=== PATIENT | male | born 1950 | race Caucasian/White ===

== ENCOUNTER → 2021-10-09 | Outpatient (CLI) | payer MEDICARE, OTHER ==
[~2021-10-09] VITALS: Ht 180 cm; Wt 106.0 kg
[~2021-10-09] MED LIST: LIDOCAINE 1% INJ 20 ML VIAL INJ ONE; LIDOCAINE 1% INJ 20 ML VIAL ONE
--- NOTE | 2021-10-09 12:35 | Diagnostic Imaging Report ---
PROCEDURE: US Thyroid. TECHNIQUE: Multiple real-time grayscale images were obtained of the thyroid in various projections. INDICATION: Thyroid nodule. Both lobes of thyroid are enlarged. Right lobe measures 8.3 x 3.3 x 3.1 cm and left lobe measures 6.9 x 4.1 x 3.1 cm. Both lobes demonstrate heterogeneous echotexture. There is a hypoechoic, circumscribed nodule in upper pole of the right lobe of the thyroid measuring 2.2 x 1.7 x 1.8 cm. No other discrete thyroid nodules are identified. Left lobe is unremarkable. IMPRESSION: Thyromegaly. There is an upper pole right lobe thyroid nodule. Patient is scheduled to undergo fine-needle aspiration today. Dictated by: Dictated on workstation # [id number]
--- NOTE | 2021-10-09 12:45 | Diagnostic Imaging Report ---
INDICATION: Right thyroid nodule. DETAILS OF THE PROCEDURE: The patient was brought to the procedure room and placed on the table in the supine position. Ultrasound imaging over the right neck was performed to evaluate for an appropriate entry site. The right neck was then prepped and draped in the usual sterile fashion. A small amount of 1% lidocaine was utilized for local anesthesia. A total of four passes was made into the hypoechoic nodule in the upper pole of the right lobe of the thyroid utilizing 25-gauge needles and fine needle aspiration technique. A single pass was made with a Rotex needle and a Rotex biopsy was performed. The needles were removed and hemostasis was obtained. The patient tolerated the procedure well and left the Department in stable condition. IMPRESSION: Successful ultrasound guided fine needle aspiration and Rotex biopsy of the right lobe thyroid nodule in the upper pole. Pathology results are currently pending. Dictated by: Dictated on workstation # [id number]
== END ==
LOC: RAD 11:00
PROVIDERS: ATTEND Otolaryngology Otolaryngology/Facial Plastic Surgery
DX: E04.1 Nontoxic single thyroid nodule (principal)
CPT/HCPCS: 10005; 76536

== ENCOUNTER → 2022-04-12 | Outpatient (CLI) | payer MEDICARE, OTHER ==
--- NOTE | 2022-04-12 17:04 | Diagnostic Imaging Report ---
PROCEDURE: US Thyroid. TECHNIQUE: Multiple real-time grayscale images were obtained of the thyroid in various projections. INDICATION: Thyroid nodule. COMPARISON: Thyroid ultrasound of 10/09/2021. FINDINGS: Right thyroid lobe: The right thyroid lobe measures 7.8 x 3.5 x 3.2 cm. It is again noted to be enlarged and has heterogeneous echogenicity. The solid, isoechoic nodule in the upper pole of the thyroid lobe maintains stable appearance with circumscribed margins and no echogenic foci. It is stable in size measuring 2.2 x 1.8 x 1.7 cm (previously 2.2 x 1.7 x 1.8 cm). Isthmus: The thyroid isthmus measures 0.7 cm and is enlarged without nodule. Left thyroid lobe: The left thyroid lobe measures 6.7 x 3.5 x 3.2 cm. It is diffusely enlarged and heterogeneous without nodule. IMPRESSION: 1. No change in size or imaging appearance of the solid nodule in the upper pole of the right thyroid. This has been previously sampled and had a reported negative finding or aspiration. Based on the 2015 [place] [employer] Management Guidelines, consider follow-up thyroid ultrasound in 12-24 months to assess stability. Dictated by: Dictated on workstation # [id number]
== END ==
LOC: RAD 13:00
PROVIDERS: ATTEND Otolaryngology Otolaryngology/Facial Plastic Surgery
DX: E04.1 Nontoxic single thyroid nodule (principal)
CPT/HCPCS: 76536

== ENCOUNTER → 2023-03-26 | Outpatient (CLI) | payer MEDICARE, OTHER ==
--- NOTE | 2023-03-26 17:24 | Diagnostic Imaging Report ---
PROCEDURE: US Thyroid. TECHNIQUE: Multiple real-time grayscale images were obtained of the thyroid in various projections. INDICATION: A thyroid nodule. Compared with study 04/12/2022. The right thyroid lobe is enlarged, heterogeneous and measures 8.0 x 3.4 x 3.5 cm, not significantly changed in size from prior. A upper pole lateral nodule relatively isoechoic to the remaining thyroidal parenchyma measures 2.1 cm long axis previously 2.2 cm. No abnormal calcifications. No extrathyroidal extension. The left lobe is enlarged and heterogeneous 6.0 x 2.7 x 3.2 cm, it appeared nonfocal. Color Doppler blood flow to both lobes unremarkable. IMPRESSION: Heterogeneous thyromegaly greater right lobe, slight reduction in size of a dominant mass upper pole right lobe previously biopsied. No adverse change or new lesion. Dictated on workstation # [id number]
== END ==
LOC: RAD 11:13
PROVIDERS: ATTEND Otolaryngology Otolaryngology/Facial Plastic Surgery
DX: E01.0 Iodine-deficiency related diffuse (endemic) goiter (principal)
CPT/HCPCS: 76536